=== PATIENT | male | born 1950 | race Caucasian/White ===

== ENCOUNTER 2016-12-03 08:51 | Inpatient (IN) ==
--- NOTE | 2016-12-02 22:06 | Discharge Summary ---
<Rhea Melgar - Last Filed: 12/03/16 08:22> Date of Encounter: 12/03/16 - Discharge Diagnosis (1) Left rotator cuff tear arthropathy Priority: Primary Status: Acute (2) HTN (hypertension) Priority: Secondary Status: Chronic Qualifiers: Hypertension type: essential hypertension Qualified Code(s): I10 - Essential (primary) hypertension (3) History of CVA (cerebrovascular accident) Priority: Secondary Status: Chronic (4) Tobacco use Priority: Secondary Status: Chronic (5) COPD (chronic obstructive pulmonary disease) Priority: Secondary Status: Chronic Qualifiers: COPD type: unspecified COPD Qualified Code(s): J44.9 - Chronic obstructive pulmonary disease, unspecified (6) HLD (hyperlipidemia) Priority: Secondary Status: Chronic Qualifiers: Hyperlipidemia type: unspecified Qualified Code(s): E78.5 - Hyperlipidemia , unspecified (7) ULICES (obstructive sleep apnea) Priority: Secondary Status: Chronic (8) Obesity Priority: Secondary Status: Chronic Qualifiers: Obesity type: unspecified obesity type Obesity severity: unspecified obesity severity Qualified Code(s): E66.9 - Obesity, unspecified - Discharge Medications Home Medications: Aspirin [Lo-Dose Aspirin EC] 81 mg PO DAILY 12/03/16 [History] Budesonide/Formoterol 80/4.5 [Symbicort 80/4.5] 2 puff IH BID 12/03/16 [History ] Clopidogrel [Plavix] 75 mg PO DAILY 12/03/16 [History] Doxazosin Mesylate [Cardura] 8 mg PO DAILY 12/03/16 [History] Ferrous Sulfate [Iron] 325 mg PO DAILY 12/03/16 [History] Furosemide [Lasix] 20 mg PO DAILY PRN 12/03/16 [History] Lisinopril [Zestril] 40 mg PO DAILY 12/03/16 [History] Metoprolol XL (24 HR) Succ [Toprol Xl] 25 mg PO DAILY 12/03/16 [History] Multivitamin [One Daily Multivitamin] 1 each PO DAILY 12/03/16 [History] OxyCODONE Immed Rel [Roxicodone 5 MG] 5 - 10 mg PO Q6HR PRN #40 tablet 12/03/16 [Rx] OxyCODONE/APAP 5/325 [Percocet 5/325 MG] 1 - 2 tab PO BID PRN 12/03/16 [History] Ranitidine HCl [Zantac] 150 mg PO BID 12/03/16 [History] Simvastatin [Zocor] 40 mg PO HS 12/03/16 [History] Tramadol HCl [Ultram] 50 mg PO BID PRN 12/03/16 [History] Allergies/Adverse Reactions: Allergies No Known Allergies Allergy (Verified 12/03/16 09:59) Primary care physician: Kris Multani Jr, MD - Patient Status Disposition: Home, Self-Care Condition: Good - Discharge Instructions Follow Up With: Kris Multani Jr, MD [Primary Care Provider] - - Hospital Course Hospital course: Mr. Sanchez is a 66 year old male - Time Spent with Patient Total time spent providing and/or coordinating discharge services: <Gopal Tyler - Last Filed: 12/04/16 06:21> Date of Encounter: 12/04/16 Time of Encounter: 06:20 - Discharge Diagnosis (1) Left rotator cuff tear arthropathy Priority: Primary Status: Acute (2) HTN (hypertension) Priority: Secondary Status: Chronic Qualifiers: Hypertension type: essential hypertension Qualified Code(s): I10 - Essential (primary) hypertension (3) History of CVA (cerebrovascular accident) Priority: Secondary Status: Chronic (4) Tobacco use Priority: Secondary Status: Chronic (5) COPD (chronic obstructive pulmonary disease) Priority: Secondary Status: Chronic Qualifiers: COPD type: unspecified COPD Qualified Code(s): J44.9 - Chronic obstructive pulmonary disease, unspecified (6) HLD (hyperlipidemia) Priority: Secondary Status: Chronic Qualifiers: Hyperlipidemia type: unspecified Qualified Code(s): E78.5 - Hyperlipidemia , unspecified (7) ULICES (obstructive sleep apnea) Priority: Secondary Status: Chronic (8) Obesity Priority: Secondary Status: Chronic Qualifiers: Obesity type: unspecified obesity type Obesity severity: unspecified obesity severity Qualified Code(s): E66.9 - Obesity, unspecified Primary care physician: Kris Multani Jr, MD - Patient Status Functional capacity at discharge: independent ambulation Overall status at discharge: patient is progressing back to baseline - Hospital Course Hospital course: Mr. Sanchez is a 66 year old male The patient had an uneventful postoperative course. They received antibiotics and physical therapy and were discharged in stable condition. There will follow -up in the office in 2 weeks. - Time Spent with Patient Total time spent providing and/or coordinating discharge services:
--- NOTE | 2016-12-03 09:03 | History & Physical Report ---
Date of Encounter: 12/03/16 Time of Encounter: 09:02 24 Hour HP Update - Instructions Instructions: If the History and Physical is less than 30 days old and was completed prior to A.M. admission and or procedure and has NOT been updated on calendar day of procedure please complete this update prior to performing procedure. - Update Patient reports changes in Medical Condition: No Changes in examination, assessment, or condition: No Changes in Medication: No Preop tests/diagnostics Reviewed: Yes Surgery Remains Indicated: Yes Consent for Planned Operative Procedure(s) Verified: Yes - Pre-Operative Checklist Preoperative Checklist Indicated: No Prophylactic Antibiotic Ordered: Yes Is VTE Prophylaxis Indicated?: Yes
[2016-12-03] MEDS ORDERED: Albuterol 2.5 MG/3 ML NEBULIZER IH ONE (09:18)
[2016-12-03] MEDS ORDERED: Lidocaine -MPF 1% 2 ML VIAL ID ONE (09:18)
[2016-12-03] MEDS ORDERED: CeFAZolin Pre 3,000 MG/100 ML 3,000 MG/100 ML BAG IVPB ONE (09:18)
[2016-12-03] MEDS ORDERED: Ringers Solution, Lactated 1,000 ML IVC SCH ×2 (09:30→15:10)
--- NOTE | 2016-12-03 09:31 | Anesthesia Evaluation PreOp ---
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, 2013) Other Medical History: Diabetes Type II (acchu check pending), GERD Anesthesia History: No Prior Anesthetic Complications, Past Anesthesia ( bariatric, nose, hernia, bilat tka, r shoulder, cscope, scrotum graft, hernia, ventral hernia) Alcohol Use: none Drug use: none Medications and Allergies Sulfamethoxazole/Trimeth DS [Bactrim DS] 1 each PO BID #20 tablet 10/09/16 [Rx] OxyCODONE Immed Rel [Roxicodone 5 MG] 5 - 10 mg PO Q6HR PRN #40 tablet 12/03/16 [Rx] Allergies No Known Allergies Allergy (Verified 10/09/16 11:41) - Meds/Allergy Pre-op Review Medications Reviewed: Yes Allergies Reviewed: Yes Beta Blockers on Current Med List: Yes If Beta Blockers taken, Date/Time (Last Dose taken): toprol xl at 0630 Anesthesia Results - Labs Laboratory Tests 11/19/16 11/19/16 11/19/16 10:00 10:00 10:00 Hgb 11.4 L Hct 35.8 L Plt Count 198 PT 11.1 INR 1.0 APTT 29.9 Sodium 143 Potassium 4.3 Creatinine 1.46 H - Imaging EKG: report reviewed (sr, lad) Anesthesia Exam O2 Sat Height 1.85 m Height 1.85 m Weight 208.652 kg Weight 208.652 kg O2 Sat by Pulse Oximetry 93 Vital Signs Temp Pulse Resp BP Pulse Ox 98.1 F 57 18 132/69 93 12/03/16 09:25 12/03/16 09:25 12/03/16 09:25 12/03/16 09:25 12/03/16 09:25 Height: 1.85 Weight: 208 NPO (# of Hours): >9 - HEENT Pupil (Motor): Pupils equal, EOMI Mallampati: II Teeth: Poor dentition Oral Opening: Greater than 3 - SUBSTITUTE NURSE LOC: Oriented SUBSTITUTE NURSE Motor: Normal RUE, Normal LUE, Normal RLE, Normal LLE, Normal Face SUBSTITUTE NURSE Sensory: Normal: RUE, LUE, RLE, LLE, Face - Cardiac Rhythm: Regular Murmur: None - Pulmonary Breath Sounds: bilateral Clear Respiratory Effort: Symmetrical Anesthesia Assess/Plan ASA Score: 4 (ketamine and lidocaine gtt) Modified Van Scale for Level of Consciousness: Cooperative, oriented, and tranquil Anesthetic Plan: General Monitoring Plan: Standard Monitors Recovery Plan: PACU
[2016-12-03] MEDS ORDERED: *HR* Midazolam HCl 2 MG/2 ML VIAL ONE (11:03)
[2016-12-03] MEDS ORDERED: *HR* Propofol 200 MG/20 ML VIAL IVP ONE ×2 (11:03→12:54)
[2016-12-03] MEDS ORDERED: *HR* FentaNYL (PF) 100 MCG/2 ML VIAL ONE ×2 (11:03→13:27)
[2016-12-03] MEDS ORDERED: Lidocaine -MPF 2% 2 ML VIAL ONE (11:04)
[2016-12-03] MEDS ORDERED: *HR* HYDROmorphone 2 MG/ML SYRINGE ONE (12:49)
[2016-12-03] MEDS ORDERED: *HR* Succinylcholine 200 MG/10 ML VIAL IVP ONE (12:56)
[2016-12-03] MEDS ORDERED: Dexamethasone 4 MG/ML VIAL ONE (12:58)
[2016-12-03] MEDS ORDERED: Ondansetron 4 MG/2 ML VIAL ONE (12:58)
[2016-12-03] MEDS ORDERED: *HR* Labetalol 20 MG/4 ML SYRINGE IVP PRN (13:06)
[2016-12-03] MEDS ORDERED: Naloxone 0.4 MG/ML INJ IVP PRN ×2 (13:06→15:10)
[2016-12-03] MEDS ORDERED: Ondansetron 4 MG/2 ML VIAL IVP ONE (13:06)
--- NOTE | 2016-12-03 13:24 | Orthopedic Operative Note ---
Date of procedure: 12/03/16 Pre-op diagnosis: Left shoulder cuff tear arthropathy Post-op diagnosis: same Procedure: Procedure: Left Total Shoulder Replacment Reverse, Estimated blood loss: 100 cc Hardware: Metal and polyethylene replacement: Arthrex large glenoid baseplate, 2 4.5 screws. 1 6.5 screw, 42 lateral glenosphere, 13 humeral stem, poly insert 3 and 6 metal Exam Under anesthesia: Full motion and stability Procedural Notes: Irreparable tears subscap supraspinatus portion of infraspinatus Operative procedure: The patient was brought to the operating room and placed on the operating room table. After general anesthesia was administered the operative shoulder was examined. Findings were noted. The patient was placed in the modified beachchair position. All pressure points were padded appropriately. And the head was stabilized in the neutral position. The operative extremity was prepped and draped in the sterile surgical fashion. The patient received IV antibiotics prior to skin incision. A standard deltopectoral approach was made to the operative shoulder. Incision was made to the skin and subcutaneous tissue,hemo stasis was obtained with Bovie cautery. Using careful blunt dissection the cephalic vein was identified and mobilized medially. The deltopectoral interval was developed and the clavipectoral fascia was incised. Subscap was completely torn and irreparable. The humerus was dislocated patient noted to have irreparable tear supraspinatus tendon, and the humeral cut was made along the anatomic neck. Anterior and posterior Bankart retractors were placed to expose the glenoid. The glenoid guide was seated and the centering hole was made. It was reamed with the appropriate reamer. The large baseplate was seated and secured with ( 2) 4.5 screws and one 6.5 screw. The baseplate was irrigated and dried and the 42+4 Glenosphere was seated and secured with the Simmons taper. The Simmons taper was tested and found to be secure the humerus was redislocated and prepared with the diaphyseal reamers, followed by a broaching process up to the appropriate size 13 in the patient's anatomic version. The metaphyseal reamer was then utilized. Trial reduction found the shoulder to be relocatable. The appropriate 13 stem was impacted in place in the patient's anatomic version. Trial reduction found the shoulder to be relocatable and stable with the appropriate 6 metal and 3 Abimbola Trial component was removed and the real implant was seated and secured the shoulder was reduced. The shoulder had excellent motion and excellent stability and no evidence of dislocation. The deep tissue was irrigated with pulse irrigation. The deltopectoral interval was closed with a running #1 PDS suture, subcutaneous tissue was irrigated and closed with 0 PDS suture, the skin was closed with Dermabond. The patient was placed in a sterile dressing, abduction brace and extubated. The patient was then transferred to the recovery room in stable condition. Anesthesia: RAMAN Surgeon: Gopal Tyler Burning Plant Operator: Rhea Melgar Condition: stable Disposition: PACU
[2016-12-03] MEDS ORDERED: Neostigmine Methylsulfate 3 MG/3 ML SYRINGE ONE (13:30)
[2016-12-03] MEDS: *HR* HYDROmorphone (PF) 1 MG/ML SYRINGE IVP PRN ×6 (13:55→20:45)
[2016-12-03] MEDS ORDERED: CloNIDine Patch 0.1 MG PATCH (WEEKLY) TD ONE ×2 (14:08→14:30)
[2016-12-03] MEDS ORDERED: Acetaminophen IV 1,000 MG/100 ML INFUS..BTL IVPB ONE (14:12)
[2016-12-03] MEDS: *HR* Morphine 10 MG/ML VIAL ONE (14:20)
[2016-12-03] MEDS: *HR* Morphine 2 MG/ML SYRINGE IVP PRN ×2 (14:20→14:32)
[2016-12-03 14:41] LABS: Hematocrit 37.2 % (37.5-50.1); Hemoglobin 12.1 g/dL (12.9-16.9)
--- NOTE | 2016-12-03 14:55 | Anesthesia Evaluation Post Op ---
Date of Encounter: 12/03/16 Time of Encounter: 14:54 - Vital Signs Vital Signs: Vital Signs/O2 Sat/Glucose, Most Recent Temp Pulse Resp BP Pulse Ox 97.9 F 48 12 125/63 99 12/03/16 14:16 12/03/16 14:12/03/16 14:26 12/03/16 14:12/03/16 14:26 Blood Glucose* 134 - Lungs Lungs: Clear Ascult./Percussion - Airway Airway: Non-obstructed - Cardiovascular Regular Rate - Mental Status Mental Status: Alert & Oriented, Answers Appropriately - Pain Pain Scale: 0 Pain Scale used: Numeric (1 - 10) - Nausea Vomiting Nausea Vomiting: Not Present - Hydration Hydration: NPO - Discharge PostOp Status: Transfer Patient to floor
[2016-12-03] MEDS ORDERED: MOM Conc 10 ML UD.LIQ PO PRN (15:10)
[2016-12-03] MEDS ORDERED: Sennosides 8.6 MG TABLET PO PRN (15:10)
[2016-12-03] MEDS ORDERED: traMADol 50 MG TABLET PO PRN (15:10)
[2016-12-03] MEDS ORDERED: *HR* OxyCODONE Immed Rel 5 MG TABLET PO PRN (15:10)
[2016-12-03] MEDS ORDERED: Furosemide 20 MG TABLET PO PRN (15:10)
[2016-12-03] MEDS ORDERED: Ondansetron 4 MG/2 ML VIAL IVP PRN (15:10)
[2016-12-03] MEDS ORDERED: Temazepam 15 MG CAPSULE PO PRN (15:10)
[2016-12-03] MEDS ORDERED: ceFAZolin 3,000 MG in D5% in Water 100 ML IVPB SCH (16:00)
[2016-12-03] MEDS: *HR* OxyCODONE Immed Rel 5 MG TABLET PO PRN ×2 (16:42→22:51)
[2016-12-03] MEDS: *HR* Enoxaparin 30 MG/0.3 ML SYRINGE SQ SCH (16:42)
[2016-12-03] MEDS ORDERED: *HR* Enoxaparin 30 MG/0.3 ML SYRINGE SQ SCH (18:00)
[2016-12-03] MEDS: ceFAZolin 3,000 MG in D5% in Water 100 ML IVPB SCH (20:44)
[2016-12-03] MEDS ORDERED: Famotidine 20 MG TABLET PO SCH (21:00)
[2016-12-03] MEDS ORDERED: Budesonide/Formoterol 80/4.5 MDI IH SCH (21:00)
[2016-12-03] MEDS: Famotidine 20 MG TABLET PO SCH (21:17)
[2016-12-04] MEDS: *HR* HYDROmorphone (PF) 1 MG/ML SYRINGE IVP PRN ×2 (00:52→05:44)
[2016-12-04] MEDS: ceFAZolin 3,000 MG in D5% in Water 100 ML IVPB SCH (03:31)
[2016-12-04] MEDS: *HR* OxyCODONE Immed Rel 5 MG TABLET PO PRN ×2 (03:39→08:22)
[2016-12-04 04:45] LABS: Hematocrit 34.1 % (37.5-50.1); Hemoglobin 11.1 g/dL (12.9-16.9)
[2016-12-04] MEDS: *HR* Enoxaparin 30 MG/0.3 ML SYRINGE SQ SCH (05:45)
--- NOTE | 2016-12-04 06:22 | Orthopedics Progress Note ---
Date of Encounter: 12/04/16 Time of Encounter: 06:21 - Assessment and Plan (1) Left rotator cuff tear arthropathy Current Visit: Yes Status: Acute (2) HTN (hypertension) Current Visit: Yes Status: Chronic Qualifiers: Hypertension type: essential hypertension Qualified Code(s): I10 - Essential (primary) hypertension (3) History of CVA (cerebrovascular accident) Current Visit: Yes Status: Chronic (4) Tobacco use Current Visit: Yes Status: Chronic (5) COPD (chronic obstructive pulmonary disease) Current Visit: Yes Status: Chronic Qualifiers: COPD type: unspecified COPD Qualified Code(s): J44.9 - Chronic obstructive pulmonary disease, unspecified (6) HLD (hyperlipidemia) Current Visit: Yes Status: Chronic Qualifiers: Hyperlipidemia type: unspecified Qualified Code(s): E78.5 - Hyperlipidemia , unspecified (7) ULICES (obstructive sleep apnea) Current Visit: Yes Status: Chronic (8) Obesity Current Visit: Yes Status: Chronic Qualifiers: Obesity type: unspecified obesity type Obesity severity: unspecified obesity severity Qualified Code(s): E66.9 - Obesity, unspecified Subjective Interval history: Patient was seen this morning doing well without complaints. Afebrile vital signs stable. Operative extremity: Neurovascularly intact Dressing clean dry and intact Calves nontender Assessment and plan: Continue with postoperative care Hematocrit 34 discharged today Objective Vital signs: Vital Signs Temp Pulse Resp BP Pulse Ox 12/04/16 04:03 98.4 F 89 15 137/77 94 12/03/16 23:43 98.1 F 101 16 148/82 96 12/03/16 20:28 17 94 12/03/16 19:32 97.5 F L 89 15 144/80 95 12/03/16 18:11 97.6 F 101 16 116/69 94 12/03/16 16:38 98.2 F 86 16 108/72 93 12/03/16 15:21 97.8 F 86 16 121/60 97 12/03/16 14:56 98.4 F 48 12 137/85 94 12/03/16 14:46 98.4 F 59 12 124/72 94 12/03/16 14:36 50 12 121/61 96 12/03/16 14:26 48 12 125/63 99 12/03/16 14:16 97.9 F 46 12 125/61 97 12/03/16 14:05 47 14 120/66 95 12/03/16 13:55 59 16 112/61 97 12/03/16 13:45 98.7 F 68 16 115/61 96 12/03/16 12:05 50 17 129/81 95 12/03/16 09:38 18 132/69 93 12/03/16 09:25 98.1 F 57 18 132/69 93 Intake and Output 12/03/16 12/03/16 12/04/16 15:59 23:59 07:59 Intake Total 100 / 100 1320 / 1320 1520 / 1520 Output Total 100 / 100 Balance 0 / 0 1320 / 1320 1520 / 1520 Intake: IV Fluids 100 / 100 100 / 100 Ancef Premix 3,000 MG/100 100 / 100 ML 3,000 mg In 100 ml @ 200 mls/hr IVPB PREOP ONE Rx#:[id number] Ancef 3,000 MG In 100 / 100 Dextrose 5% 100 ML @ 200 mls/hr IVPB Q8H COURTNEY Rx#: [id number] Oral 1220 / 1220 1520 / 1520 Output: Estimated Blood Loss 100 / 100 Other: Meal Dinner Percent of Meal Consumed 100% Weight 208.652 kg Blood Glucose* 134 142 - Labs CBC & BMP: 12/04/16 04:25 Labs: Abnormal lab results Hgb 11.1 g/dL (12.9-16.9) L 12/04/16 04:25 Hct 34.1 % (37.5-50.1) L 12/04/16 04:25 POC Glucose 142 (58-89) H 12/03/16 16:39 - VTE Documentation of Mechanical Device: Venous foot pump, device Consult Discharge Plan - Plan Referrals: Kris Multani Jr, MD [Primary Care Provider] -
[2016-12-04 06:36] VITALS: BP 115/65
[2016-12-04] MEDS: *HR* Morphine 10 MG/ML VIAL ONE (07:32)
[2016-12-04] MEDS: Famotidine 20 MG TABLET PO SCH (08:19)
[2016-12-04] MEDS ORDERED: Multivit/Ca/Min/Fe/FA 1 TAB TABLET PO SCH (09:00)
[2016-12-04] MEDS ORDERED: Metoprolol XL (24 HR) Succ 25 MG TAB.ER.24H PO SCH (09:00)
[2016-12-04] MEDS ORDERED: Aspirin Enteric Coated 81 MG Tablet PO SCH (09:00)
[2016-12-04] MEDS ORDERED: Lisinopril 20 MG TABLET PO SCH (09:00)
== END 2016-12-04 10:25 | disposition home or self-care (01) | DRG 483 ==
LOC: SAMDAY 08:51 → 3NENU 15:08
PROVIDERS: ADMIT Orthopaedic Surgery; ATTEND Orthopaedic Surgery

== ENCOUNTER 2021-08-02 11:16 | Inpatient (IN) ==
[2021-08-02] MEDS ORDERED: Ipratropium/Albuterol Neb 3 ML IH ONE (12:36)
[2021-08-02 12:55] LABS: Basophils % 0.3 %; Eosinophils # 0.4 K/mcL (0.0-0.6); Eosinophils % 3.3 %; Hematocrit 32.9 % (37.5-50.1); Hemoglobin 10.7 g/dL (12.9-16.9); Immature Granulocytes % 0.5 % (0-4); Lymphocytes # 0.5 K/mcL (0.6-4.6); Lymphocytes % 4.4 %; Mean Corpuscular HGB Conc 32.5 g/dL (31.6-35.5); Mean Corpuscular Hemoglobin 31.8 pg (28.0-33.3); Mean Corpuscular Volume 97.9 fL (83.0-100.0); Mean Platelet Volume 9.6 fL (9.4-12.4); Monocytes % 9.3 %; Neutrophils # 9.2 K/mcL (1.6-8.9); Platelet Count 183 K/mcL (140-400); Red Blood Count 3.36 M/mcL (4.19-5.50); Red Cell Distribution Width 13.2 % (11.5-14.5); Segmented Neutrophils % 82.2 %; White Blood Count 11.1 K/mcL (4.3-11.1)
[2021-08-02 13:08] LABS: Potassium 3.8 mEq/L (3.5-5.1); Troponin I 0.03 ng/mL (< 0.04)
[2021-08-02] MEDS ORDERED: 0.9 % Sodium Chloride 500 ML IVC ONE (15:16)
[2021-08-02] MEDS ORDERED: Naloxone 0.4 MG/ML INJ IVP PRN (15:40)
[2021-08-02] MEDS ORDERED: Ondansetron 4 MG/2 ML VIAL IVP PRN (15:40)
[2021-08-02] MEDS ORDERED: Melatonin 3 MG TABLET PO PRN (15:40)
[2021-08-02] MEDS ORDERED: Acetaminophen 325 MG TABLET PO PRN (15:48)
[2021-08-02 18:14] LABS: Albumin 3.8 g/dL (3.5-5.7); Albumin/Globulin Ratio 1.5 (1.1-2.2); Bilirubin,Direct 0.1 mg/dL (0.0-0.2); Bilirubin,Indirect 0.6 mg/dL (0.0-1.0); Bilirubin,Total 0.7 mg/dL (0.3-1.0); Globulin 2.6 g/dL (2.4-3.5); Total Protein 6.4 g/dL (6.4-8.9)
[2021-08-02] MEDS ORDERED: Remdesivir 200 MG in 0.9 % Sodium Chloride 100 ML IVPB ONE (20:00)
[2021-08-02 21:15] LABS: INR 2.9
[2021-08-02] MEDS ORDERED: *HR* Heparin 5,000 UNIT/ML VIAL SQ SCH (22:00)
[2021-08-03 07:09] LABS: INR 3.1
[2021-08-03 07:39] LABS: Albumin 3.5 g/dL (3.5-5.7); Albumin/Globulin Ratio 1.6 (1.1-2.2); Bilirubin,Direct 0.1 mg/dL (0.0-0.2); Bilirubin,Indirect 0.3 mg/dL (0.0-1.0); Bilirubin,Total 0.4 mg/dL (0.3-1.0); Calcium 8.9 mg/dL (8.6-10.3); Globulin 2.2 g/dL (2.4-3.5); Potassium 4.3 mEq/L (3.5-5.1); Total Protein 5.7 g/dL (6.4-8.9)
[2021-08-03] MEDS: Ascorbic Acid 500 MG TABLET PO SCH (08:57)
[2021-08-03] MEDS: Multivit/Ca/Min/Fe/FA 1 TAB TABLET PO SCH (08:57)
[2021-08-03] MEDS: Zinc Sulfate 220 MG CAPSULE PO SCH (08:58)
[2021-08-03] MEDS: Metoprolol XL (24 HR) Succ 50 MG TAB.ER.24H PO SCH (08:58)
[2021-08-03] MEDS: Cholecalciferol (D-3) 1,000 UNIT (25MCG) TABLET PO SCH (08:58)
[2021-08-03] MEDS: Aspirin Enteric Coated 81 MG Tablet PO SCH (08:59)
[2021-08-03] MEDS ORDERED: Furosemide 40 MG TABLET PO SCH (09:00)
[2021-08-03] MEDS ORDERED: lisinopriL 20 MG TABLET PO SCH (09:00)
[2021-08-03] MEDS: Ipratropium 1 PUFF INHALER IH PRN ×2 (10:40→23:31)
[2021-08-03] MEDS ORDERED: Acetaminophen 325 MG TABLET PO PRN (12:48)
[2021-08-03] MEDS ORDERED: *HR* Warfarin 5 MG TABLET PO ONE (18:00)
[2021-08-03] MEDS ORDERED: Warfarin perPT PO PRN (18:00)
[2021-08-03] MEDS: Remdesivir 100 MG in 0.9 % Sodium Chloride 100 ML IVPB SCH (20:51)
[2021-08-04 03:45] LABS: INR 2.8; Prothrombin Time 30.6 Seconds (9.4-12.1)
[2021-08-04 03:56] LABS: Calcium 8.5 mg/dL (8.6-10.3); Potassium 4.4 mEq/L (3.5-5.1)
[2021-08-04 03:58] LABS: Albumin 3.5 g/dL (3.5-5.7); Albumin/Globulin Ratio 1.5 (1.1-2.2); Bilirubin,Indirect 0.5 mg/dL (0.0-1.0); Bilirubin,Total 0.5 mg/dL (0.3-1.0); Globulin 2.3 g/dL (2.4-3.5); Total Protein 5.8 g/dL (6.4-8.9)
[2021-08-04] MEDS: Ipratropium 1 PUFF INHALER IH PRN ×3 (07:46→23:27)
[2021-08-04] MEDS: Multivit/Ca/Min/Fe/FA 1 TAB TABLET PO SCH (09:08)
[2021-08-04] MEDS: Aspirin Enteric Coated 81 MG Tablet PO SCH (09:08)
[2021-08-04] MEDS: Ascorbic Acid 500 MG TABLET PO SCH (09:08)
[2021-08-04] MEDS: Zinc Sulfate 220 MG CAPSULE PO SCH (09:08)
[2021-08-04] MEDS: Metoprolol XL (24 HR) Succ 50 MG TAB.ER.24H PO SCH (09:08)
[2021-08-04] MEDS: Cholecalciferol (D-3) 1,000 UNIT (25MCG) TABLET PO SCH (09:08)
[2021-08-04] MEDS: Benzonatate 100 MG CAPSULE PO PRN (09:10)
[2021-08-04] MEDS: *HR* OxyCODONE/APAP 5/325 TABLET PO PRN ×2 (09:59→19:53)
[2021-08-04] MEDS ORDERED: *HR* Warfarin 5 MG TABLET PO ONE (18:00)
[2021-08-04] MEDS: Remdesivir 100 MG in 0.9 % Sodium Chloride 100 ML IVPB SCH (19:33)
[2021-08-05] MEDS: Ipratropium 1 PUFF INHALER IH PRN ×2 (03:24→15:35)
[2021-08-05 06:02] LABS: INR 2.8; Prothrombin Time 30.5 Seconds (9.4-12.1)
[2021-08-05 06:14] LABS: Albumin 3.3 g/dL (3.5-5.7); Albumin/Globulin Ratio 1.4 (1.1-2.2); Bilirubin,Direct 0.1 mg/dL (0.0-0.2); Bilirubin,Indirect 0.3 mg/dL (0.0-1.0); Bilirubin,Total 0.4 mg/dL (0.3-1.0); Globulin 2.3 g/dL (2.4-3.5); Total Protein 5.6 g/dL (6.4-8.9)
[2021-08-05 10:18] LABS: Calcium 8.6 mg/dL (8.6-10.3); Potassium 4.3 mEq/L (3.5-5.1)
[2021-08-05] MEDS: Aspirin Enteric Coated 81 MG Tablet PO SCH (10:18)
[2021-08-05] MEDS: Ascorbic Acid 500 MG TABLET PO SCH (10:20)
[2021-08-05] MEDS: Cholecalciferol (D-3) 1,000 UNIT (25MCG) TABLET PO SCH (10:20)
[2021-08-05] MEDS: Multivit/Ca/Min/Fe/FA 1 TAB TABLET PO SCH (10:20)
[2021-08-05] MEDS: Metoprolol XL (24 HR) Succ 50 MG TAB.ER.24H PO SCH (10:20)
[2021-08-05] MEDS: Zinc Sulfate 220 MG CAPSULE PO SCH (10:20)
[2021-08-05] MEDS: Benzonatate 100 MG CAPSULE PO PRN ×2 (10:25→21:18)
[2021-08-05] MEDS: *HR* OxyCODONE/APAP 5/325 TABLET PO PRN ×3 (10:25→23:05)
[2021-08-05] MEDS ORDERED: *HR* Warfarin 5 MG TABLET PO ONE (18:00)
[2021-08-05] MEDS: Remdesivir 100 MG in 0.9 % Sodium Chloride 100 ML IVPB SCH (21:19)
[2021-08-06 02:08] LABS: INR 3.1
[2021-08-06 02:26] LABS: Albumin 3.2 g/dL (3.5-5.7); Albumin/Globulin Ratio 1.4 (1.1-2.2); Bilirubin,Direct 0.1 mg/dL (0.0-0.2); Bilirubin,Indirect 0.2 mg/dL (0.0-1.0); Bilirubin,Total 0.3 mg/dL (0.3-1.0); Calcium 8.3 mg/dL (8.6-10.3); Globulin 2.3 g/dL (2.4-3.5); Potassium 4.6 mEq/L (3.5-5.1); Total Protein 5.5 g/dL (6.4-8.9)
[2021-08-06] MEDS: Ascorbic Acid 500 MG TABLET PO SCH (07:55)
[2021-08-06] MEDS: Multivit/Ca/Min/Fe/FA 1 TAB TABLET PO SCH (07:55)
[2021-08-06] MEDS: Aspirin Enteric Coated 81 MG Tablet PO SCH (07:56)
[2021-08-06] MEDS: Cholecalciferol (D-3) 1,000 UNIT (25MCG) TABLET PO SCH (07:56)
[2021-08-06] MEDS: Metoprolol XL (24 HR) Succ 50 MG TAB.ER.24H PO SCH (07:56)
[2021-08-06] MEDS: Zinc Sulfate 220 MG CAPSULE PO SCH (07:56)
[2021-08-06] MEDS: Benzonatate 100 MG CAPSULE PO PRN (07:56)
[2021-08-06] MEDS: *HR* OxyCODONE/APAP 5/325 TABLET PO PRN ×2 (07:56→15:10)
[2021-08-06] MEDS: Ipratropium 1 PUFF INHALER IH PRN ×2 (08:45→11:55)
[2021-08-06 12:05] VITALS: BP 125/76; PULSE 64; TEMP 97.6; O2SAT 90
[2021-08-06] MEDS ORDERED: *HR* Warfarin 2.5 MG TABLET PO ONE (18:00)
== END 2021-08-06 16:21 | disposition home or self-care (01) | DRG 177 ==
LOC: 2ANU 11:16 → EMEROOARM 11:16 → SUATTDRO 15:39 → 2ANU 16:38
PROVIDERS: ADMIT Family Medicine; ATTEND Internal Medicine